=== PATIENT | female | born 1930 | race Caucasian/White ===

== ENCOUNTER 2016-05-27 09:46 | Day surgery (SDC) | payer MEDICARE, OTHER ==
[~2016-05-27] VITALS: Ht 165.1 cm; Wt 71.2 kg
[~2016-05-27 09:46] MED LIST: ASPI-973 PO; CALC-762 PO; CHOL4PAC PO; GLUC-123 PO; LATA2.5D6 LEFT_EYE; LEVO100C2 PO; LEVO100T6 PO; METF500T4 PO; METO25TA6 PO; MULT1CAP33 PO; OMEG500C PO; SIMV40TA5 PO; Sodium Chloride LOK Flush 10 mL Syringe IV PRN; TIMO5DRO26 LEFT_EYE; fentaNYL-PF 50 mCg/mL 2 mL Inj IVPUSH PRN
[2016-05-27 10:19] VITALS: BP 123/67; PULSE 80; RESP 16; O2SAT 96
[2016-05-27] MEDS: 0.9% Sodium Chloride 1,000 ML IV SCH ×3 (10:27→10:55)
[2016-05-27 11:10] VITALS: BP 140/63; PULSE 60; RESP 14; O2SAT 93
[2016-05-27 11:19] VITALS: BP 118/63; PULSE 68; RESP 16; O2SAT 95
[2016-05-27 11:31] VITALS: BP 110/67; PULSE 71; RESP 16; O2SAT 96
--- NOTE | 2016-05-27 19:20 | ENDO ---
[address] [address] ENDOSCOPY PROCEDURE PATIENT: CRAIG MARIEE : 1930 MR#: [id number] ADMIT: 05/27/2016 JOB ID: [id number] PROCEDURE: Colonoscopy. INDICATION: Hematochezia. Patient's ASA classification is II. Mallampati score is II. MEDICATIONS: Versed 3 mg, fentanyl 100 mcg. INSTRUMENT USED: PCF-H180AL. Prep quality was good. PROCEDURE DETAILS: After informed consent was obtained, the patient was brought to the GI suite, where she was placed on oxygen via nasal cannula and monitored with continuous pulse oximeter, telemetry, and blood pressure monitoring. A time-out was performed. Then, she was placed in the left lateral decubitus position and medications were administered for sedation. Digital rectal exam revealed a soft nodule on the left buttock which patient states has been there, present for years. The colonoscope was then inserted into the rectum and advanced under direct visualization to the ileocecal anastomosis. This was consistent with patient's prior history of colon cancer surgery. Once the anastomosis was reached, the colonoscope was withdrawn back into the rectum as the mucosa and lumen were examined. In the rectum, retroflexion was performed. Following retroflexion, remaining air in the rectum was suctioned, and procedure was completed. FINDIN. Ileocolic anastomosis with suture material present at anastomosis. The minnie-terminal ileum was briefly intubated and appeared unremarkable. 2. Retroflexed views in the rectum revealed prominent anal papillae. FINDIN. Left buttock nodule. 2. Ileocolic anastomosis. 3. Prominent anal papillae. RECOMMENDATIONS: 1. Follow up in GI clinic in 2-4 weeks. 2. If bleeding persists, consider trial of Anusol suppositories. 3. If constipation is present, MiraLAX daily. COMPLICATIONS: None. ESTIMATED BLOOD LOSS: Zero.
--- NOTE | 2016-05-27 20:10 | ENDO ---
[address] [address] ENDOSCOPY PROCEDURE PATIENT: CRAIG MARIEE : 1930 MR#: [id number] ADMIT: 05/27/2016 JOB ID: [id number] PROCEDURE: Colonoscopy. INDICATIONS: Hematochezia. Patient's ASA classification is II. Mallampati score is II. MEDICATIONS: Versed 3 mg, fentanyl 100 mcg. INSTRUMENT USED: PCF-H180AL. Prep quality was good. PROCEDURE DETAILS: After informed consent was obtained, the patient was brought into the GI suite, where she was placed on oxygen via nasal cannula and monitored with continuous pulse oximeter, telemetry, and blood pressure monitoring. A time-out was performed. Then, she was placed in a left lateral decubitus position and medications were administered for sedation. Digital rectal exam revealed on the buttock an approximately 5-8 mm papule. Appearance was consistent with a wart which patient states has been present there for years. The colonoscope was then inserted into the rectum and advanced under direct visualization to the ileocolic anastomosis which was identified. and then there suture material present at the ileocolic anastomosis. The minnie-terminal ileum was briefly intubated and appeared unremarkable. The colonoscope was then withdrawn back into the rectum as the mucosa and lumen were examined. In the rectum, retroflexion was performed. Following retroflexion, remaining air in the rectum was suctioned, and procedure was completed. FINDINGS: 1. Ileocolic anastomosis. 2. Prominent anal papillae. 3. Left buttock papule with appearance consistent with wart. RECOMMENDATIONS: 1. If hematochezia persists, consider a trial of MiraLAX and/or trial of Anusol HC suppositories. 2. Follow up in GI clinic in 2-4 weeks. COMPLICATIONS: None. ESTIMATED BLOOD LOSS: Zero.
== END 2016-05-27 23:59 | disposition home or self-care (01) ==
LOC: END 09:46
PROVIDERS: ATTEND Internal Medicine Gastroenterology
DX: K63.89 Other specified diseases of intestine (principal); R22.9 Localized swelling, mass and lump, unspecified; K92.1 Melena; I10 Essential (primary) hypertension; E11.9 Type 2 diabetes mellitus without complications; E03.9 Hypothyroidism, unspecified; E78.5 Hyperlipidemia, unspecified; Z90.49 Acquired absence of other specified parts of digestive tract; Z85.038 Personal history of other malignant neoplasm of large intestine; Z79.82 Long term (current) use of aspirin; Z79.84 Long term (current) use of oral hypoglycemic drugs
CPT/HCPCS: 45378; G0500; J7030